=== PATIENT | male | born 1950 | race Caucasian/White ===

== ENCOUNTER 2024-07-11 10:21 | Outpatient (CLI) | payer MEDICARE, SELFPAY ==
--- NOTE | ~2024-07-11 | XR_ITS ---
Clinical Indication: Cough, fever PA and lateral views of the chest: Comparison: None Findings: There are probable central pulmonary venous congestive change and mild bibasilar pulmonary edema. Cardiomediastinal silhouette is within normal limits. Bones and soft tissues are unremarkable . Impression: Possible central congestive change and mild bibasilar pulmonary edema. Correlate clinically for atypi rajesh infection. Reviewed, dictated and finalized at location . Impression: Possible central congestive change and mild bibasilar pulmonary edema. Correlat e clinically for atypical infection.
== END 2024-07-11 10:22 | disposition home or self-care (01) ==
PROVIDERS: PCP Family Medicine; Referring Provider Internal Medicine Pulmonary Disease; Visit Provider Registered Nurse
DX: R05.9 Cough, unspecified (principal); R50.9 Fever, unspecified
CPT/HCPCS: 71046